=== PATIENT | female | born 1955 | race American Indian/Alaskan Native ===

== ENCOUNTER 2022-01-17 11:31 | Inpatient (IN) | payer MEDICARE, MEDICAID ==
[2022-01-17] MEDS ORDERED: ONDANSETRON 4 MG/2 ML INJ IV SCH (12:47)
[2022-01-17] MEDS ORDERED: MORPHINE 2 MG/1 ML INJ IV SCH (12:47)
--- NOTE | 2022-01-17 12:51 | Emergency Department Report ---
ED Chest Pain HPI - General Chief Complaint: Chest Pain Stated Complaint: CHEST PAIN Time Seen by Provider: 01/17/22 12:36 Source: patient Mode of arrival: Ambulatory Limitations: No Limitations - History of Present Illness Initial Comments: This is a 66-year-old female with history of arthritis, hypertension, asthma, and hyperlipidemia who presents to the emergency department with multiple complaints which started last week. Patient complains of substernal, pressure- like, moderate chest pain, intermittently since last week. The pain returned again, last night, and was associated with weakness, dizziness, coffee-ground emesis, and 4 episodes of syncope. Currently, patient complains of shortness of breath, generalized fatigue, moderate, burning epigastric pain, and palpitations. Patient denies previous similar episodes. Patient does not know if she has GERD, peptic ulcer disease, or any GI malignancy, and has never had a colonoscopy. Patient denies alleviating or aggravating factors. - Related Data Allergies Allergy/AdvReac Type Severity Reaction Status Date / Time aspirin Allergy Unknown Verified 01/17/22 14:45 ibuprofen [From Motrin] Allergy Unknown Verified 01/17/22 14:45 Heart Score - HEART Score History: Moderately suspicious EKG: Non-specific Age: > 65 (This) Risk factors: > 3 risk factors or hx of atherosclerotic disease Troponin: 1-3x normal limit (Thinks) HEART Score: 7 - EKG Read Time Time EKG Completed: 12:20 EKG Read Time: 12:25 ED Review of Systems ROS: Stated complaint: CHEST PAIN Other details as noted in HPI Comment: All other systems reviewed and negative Constitutional: malaise, weakness. denies: chills, fever Eyes: denies: eye pain, eye discharge, vision change ENT: denies: ear pain, throat pain Respiratory: shortness of breath, SOB at rest. denies: cough, orthopnea, wheezing Cardiovascular: chest pain, palpitations, dyspnea on exertion Endocrine: no symptoms reported Gastrointestinal: abdominal pain, nausea, vomiting, hematemesis. denies: diarrhea Genitourinary: denies: urgency, dysuria, discharge Musculoskeletal: other (Chronic pain). denies: back pain, joint swelling, arthralgia Skin: denies: rash, lesions Neurological: other (Syncope x3). denies: headache, weakness, paresthesias Psychiatric: denies: anxiety, depression Hematological/Lymphatic: denies: easy bleeding, easy bruising ED Physical Exam - General Limitations: No Limitations General appearance: alert, in no apparent distress, other (Appears weak) - Head Head exam: Present: atraumatic, normocephalic - Eye Eye exam: Present: normal appearance, PERRL, EOMI, other (Pale conjunctiva) - ENT ENT exam: Present: normal orophraynx, mucous membranes moist - Neck Neck exam: Present: normal inspection - Respiratory Respiratory exam: Present: normal lung sounds bilaterally. Absent: respiratory distress, wheezes, rales - Cardiovascular Cardiovascular Exam: Present: normal rhythm, tachycardia. Absent: systolic murmur, diastolic murmur, rubs, gallop - GI/Abdominal GI/Abdominal exam: Present: soft, tenderness (Epigastric), normal bowel sounds. Absent: distended, guarding, rebound - Extremities Exam Extremities exam: Present: normal inspection - Back Exam Back exam: Present: normal inspection - Neurological Exam Neurological exam: Present: alert, oriented X3 - Psychiatric Psychiatric exam: Present: normal affect, normal mood - Skin Skin exam: Present: warm, dry, intact, pallor. Absent: rash ED Course Vital Signs 01/17/22 11:45 Temperature 97.8 F Pulse Rate 139 H Respiratory 18 Rate Blood Pressure 132/94 [Left] O2 Sat by Pulse 99 Oximetry ED Medical Decision Making - Lab Data Result diagrams: 01/17/22 14:08 01/17/22 14:08 - EKG Data When compared to previous EKG there are: previous EKG unavailable Interpretation: other (Sinus tachycardia at [address]-T wave changes) - Radiology Data IMPRESSION: 1. Negative for PTE. Minimal atelectasis with otherwise clear lungs. 2. No acute abnormality in the abdomen or pelvis. Please note that the lower pelvis was excluded from view on this exam. Signer Name: Mehdi Lewis MD - Medical Decision Making 66-year-old female presents with multiple complaints including chest pain, coffee-ground emesis, and multiple episodes of syncope which started at 4:30 AM. Patient's vital signs are concerning for tachycardia (139). Physical exam is concerning for generalized weak appearing patient, who is tachycardic, pale, and with epigastric tenderness. EKG is sinus tach at 133 with diffuse T depressions. Blood work is concerning for elevated lactic acid is (2.4), anemia (9.7), and elevated D-dimer. Troponin was within normal limits. CTA chest did not show pulmonary embolism. CT abdomen pelvis did not show any acute abnormal ities, either. Patient reports significant improvement of her symptoms after morphine, IV fluids, and Protonix. Patient verbalized understanding of her diagnoses, and is amenable to admission. - Differential Diagnosis GI bleed, ACS, pulmonary embolism Critical care attestation.: If time is entered above; I have spent that time in minutes in the direct care of this critically ill patient, excluding procedure time. ED Disposition Clinical Impression: Epigastric abdominal pain, Coffee ground emesis Chest pain Qualifiers: Chest pain type: other chest pain Qualified Code(s): R07.89 - Other chest pain Disposition: 09 ADMITTED INPATIENT Is pt being admited?: Yes Does the pt Need Aspirin: No Condition: Serious Instructions: Nonspecific Chest Pain, Adult Referrals: PRIMARY CARE, [Primary Care Provider] - 3-5 Days
--- NOTE | 2022-01-17 13:37 | XRay Report ---
CHEST 1 VIEW 01/17/2022 1:23 PM INDICATION / CLINICAL INFORMATION: GI Bleed. COMPARISON: None available. FINDINGS: SUPPORT DEVICES: None. HEART / MEDIASTINUM: No significant abnormality. LUNGS / PLEURA: No significant pulmonary or pleural abnormality. No pneumothorax. ADDITIONAL FINDINGS: No significant additional findings. IMPRESSION: 1. No acute findings. Signer Name: Yo Vernon MD Signed: 01/17/2022 1:33 PM Workstation Name: [id number]
[2022-01-17 14:35] LABS: Basophils # (Auto) 0.1 K/mm3 (0.0-0.1); Basophils % (Auto) 0.6 % (0.0-1.8); Eosinophils % (Auto) 0.3 % (0.0-4.3); Hematocrit 28.6 % (30.3-42.9); Hemoglobin 9.7 gm/dl (10.1-14.3); Lymphocytes # (Auto) 1.1 K/mm3 (1.2-5.4); Mean Corpuscular HGB Conc 34 % (30-34); Mean Corpuscular Volume 92 fl (79-97); Monocytes # (Auto) 0.3 K/mm3 (0.0-0.8); Monocytes % (Auto) 3.9 % (0.0-7.3); Platelet Count 256 K/mm3 (140-440); Red Cell Distribution Width 14.6 % (13.2-15.2)
[2022-01-17 14:58] LABS: Alanine Aminotransferase 11 units/L (7-56); Albumin 4.7 g/dL (3.9-5); Blood Urea Nitrogen 37 mg/dL (7-17); Calcium 10.3 mg/dL (8.4-10.2); Hemolysis Index 30
[2022-01-17 15:25] LABS: BUN/Creatinine Ratio 53
[2022-01-17] MEDS ORDERED: PANTOPRAZOLE 40 MG INJ IV ONE (16:00)
[2022-01-17] MEDS ORDERED: SODIUM CHLORIDE 0.9% 1000 ML 1,000 ML IV ONE (16:00)
[2022-01-17] MEDS ORDERED: PANTOPRAZOLE 80 MG in SODIUM CHLORIDE 0.9% 100 ML IV ONE (16:00)
[2022-01-17 17:52] LABS: INR 0.97 (0.87-1.13)
[2022-01-17 17:53] LABS: Partial Thromboplastin Time 24.8 Sec. (24.2-36.6)
--- NOTE | 2022-01-17 18:08 | Cat Scan Report ---
CTA chest with contrast CT abdomen and pelvis with contrast INDICATION : GI Bleed Chest pain rule out PE 100ml of [id number]. Concern for GI bleed TECHNIQUE: Axial imaging performed through the chest, with contrast bolus timing set to maximize opa cification of the pulmonary arteries. 3-plane MIP reformatted images were obtained. Axial imaging als o performed through the abdomen and pelvis with IV contrast. All CT scans at this location are perfor med using CT dose reduction for ALARA by means of automated exposure control. 100 mL of intravenous contrast administered. COMPARISON: None FINDINGS: CTA chest: Contrast bolus timing is adequate with no filling defect present to suggest PTE. Normal heart size. N o pathologic mediastinal adenopathy. No coronary artery calcification. Minimal streaky left greater t chahal right basilar atelectasis. No consolidation or effusion. Degenerative changes in the spine with n othing acute. CT abdomen/pelvis: The liver, gallbladder, spleen, pancreas, adrenals, kidneys, and proximal GI tract appear unremarkabl e. The lower pelvis was excluded. The visualized mid bladder appears unremarkable. Uterus appears to be surgically absent. No gross pelvic free fluid. No acute colonic abnormality identified. There are deg enerative changes in the spine and pelvis with nothing acute. IMPRESSION: 1. Negative for PTE. Minimal atelectasis with otherwise clear lungs. 2. No acute abnormality in the abdomen or pelvis. Please note that the lower pelvis was excluded from view on this exam. Signer Name: Mehdi Lewis MD Signed: 01/17/2022 6:04 PM Workstation Name: [id number]
--- NOTE | 2022-01-17 18:08 | Cat Scan Report ---
CTA chest with contrast CT abdomen and pelvis with contrast INDICATION : Chest pain rule out PE 100ml of [id number]. Concern for GI bleed TECHNIQUE: Axial imaging performed through the chest, with contrast bolus timing set to maximize opa cification of the pulmonary arteries. 3-plane MIP reformatted images were obtained. Axial imaging als o performed through the abdomen and pelvis with IV contrast. All CT scans at this location are perfor med using CT dose reduction for ALARA by means of automated exposure control. 100 mL of intravenous contrast administered. COMPARISON: None FINDINGS: CTA chest: Contrast bolus timing is adequate with no filling defect present to suggest PTE. Normal heart size. N o pathologic mediastinal adenopathy. No coronary artery calcification. Minimal streaky left greater t chahal right basilar atelectasis. No consolidation or effusion. Degenerative changes in the spine with n othing acute. CT abdomen/pelvis: The liver, gallbladder, spleen, pancreas, adrenals, kidneys, and proximal GI tract appear unremarkabl e. The lower pelvis was excluded. The visualized mid bladder appears unremarkable. Uterus appears to be surgically absent. No gross pelvic free fluid. No acute colonic abnormality identified. There are deg enerative changes in the spine and pelvis with nothing acute. IMPRESSION: 1. Negative for PTE. Minimal atelectasis with otherwise clear lungs. 2. No acute abnormality in the abdomen or pelvis. Please note that the lower pelvis was excluded from view on this exam. Signer Name: Mehdi Lewis MD Signed: 01/17/2022 6:04 PM Workstation Name: [id number]
[2022-01-17] MEDS ORDERED: METOCLOPRAMIDE 10 MG/2 ML INJ IV PRN (22:00)
[2022-01-17] MEDS ORDERED: MORPHINE 2 MG/1 ML INJ IV PRN (22:00)
[2022-01-17] MEDS ORDERED: ACETAMINOPHEN 325 MG TAB PO PRN (22:00)
[2022-01-17] MEDS ORDERED: ONDANSETRON 4 MG/2 ML INJ IV PRN (22:00)
[2022-01-17] MEDS: HEPARIN 5,000 UNIT/1 ML VIAL SUB-Q SCH (22:36)
[2022-01-18 05:04] LABS: Basophils % (Auto) 0.3 % (0.0-1.8); Hematocrit 25.3 % (30.3-42.9); Hemoglobin 8.4 gm/dl (10.1-14.3); Lymphocytes # (Auto) 2.4 K/mm3 (1.2-5.4); Lymphocytes % (Auto) 31.5 % (13.4-35.0); Mean Corpuscular HGB Conc 33 % (30-34); Mean Corpuscular Volume 93 fl (79-97); Monocytes # (Auto) 0.5 K/mm3 (0.0-0.8); Monocytes % (Auto) 7.1 % (0.0-7.3); Platelet Count 231 K/mm3 (140-440); Red Blood Count 2.72 M/mm3 (3.65-5.03); Red Cell Distribution Width 14.7 % (13.2-15.2)
[2022-01-18 05:08] LABS: Alanine Aminotransferase 10 units/L (7-56); Albumin 4.4 g/dL (3.9-5); BUN/Creatinine Ratio 36; Blood Urea Nitrogen 29 mg/dL (7-17); Calcium 9.4 mg/dL (8.4-10.2); Hemolysis Index 33
--- NOTE | 2022-01-18 07:56 | History and Physical Report ---
History of Present Illness Date of examination: 01/17/22 Date of admission: 01/17/22 Chief complaint: Chest pain since a.m. History of present illness: 66-year-old female with history of hypertension asthma arthritis and hyperlipidemia presents with chest pain which is intermittent for the last 1 week more so for since a.m. Patient is a very poor historian. Patient also apparently passed out. Patient apparently in the coffee-ground emesis which is not corroborated. No shortness of breath. No fatigue. No epigastric pain. Heart Score - HEART Score History: Moderately suspicious EKG: Non-specific Age: > 65 (This) Risk factors: > 3 risk factors or hx of atherosclerotic disease Troponin: 1-3x normal limit (Thinks) HEART Score: 7 - EKG Read Time Time EKG Completed: 12:20 EKG Read Time: 12:25 Review of Systems ROS: Stated complaint: CHEST PAIN Other details as noted in HPI Comment: All other systems reviewed and negative Constitutional: malaise, weakness. denies: chills, fever Eyes: denies: eye pain, eye discharge, vision change ENT: denies: ear pain, throat pain Respiratory: shortness of breath, SOB at rest. denies: cough, orthopnea, wheezing Cardiovascular: chest pain, palpitations, dyspnea on exertion Endocrine: no symptoms reported Gastrointestinal: abdominal pain, nausea, vomiting, hematemesis. denies: diarrhea Genitourinary: denies: urgency, dysuria, discharge Musculoskeletal: other (Chronic pain). denies: back pain, joint swelling, arthralgia Skin: denies: rash, lesions Neurological: other (Syncope x3). denies: headache, weakness, paresthesias Psychiatric: denies: anxiety, depression Hematological/Lymphatic: denies: easy bleeding, easy bruising Past History Past Medical History: diabetes, hypertension Past Surgical History: , hysterectomy, Other Social history: lives with family, full code Family history: hypertension Medications and Allergies Allergies Allergy/AdvReac Type Severity Reaction Status Date / Time aspirin Allergy Unknown Verified 01/17/22 14:45 ibuprofen [From Motrin] Allergy Unknown Verified 01/17/22 14:45 Active Meds: Active Medications Acetaminophen (Acetaminophen 325 Mg Tab) 650 mg PO Q4H PRN PRN Reason: Pain MILD(1-3)/Fever >100.5/BACA Famotidine (Famotidine 20 Mg Tab) 20 mg PO BID [facility] Heparin Sodium (Porcine) (Heparin 5,000 Unit/1 Ml Vial) 5,000 unit SUB-Q Q12HR [facility] Last Admin: 01/17/22 22:36 Dose: 5,000 unit Sodium Chloride (Nacl 0.9% 1000 Ml) 1,000 mls @ 75 mls/hr IV DIRECT RG Metoclopramide HCl (Metoclopramide 10 Mg/2 Ml Inj) 10 mg IV Q6H PRN PRN Reason: Nausea And Vomiting Morphine Sulfate (Morphine 2 Mg/1 Ml Inj) 2 mg IV Q4H PRN PRN Reason: Pain, Moderate (4-6) Ondansetron HCl (Ondansetron 4 Mg/2 Ml Inj) 4 mg IV Q8H PRN PRN Reason: Nausea And Vomiting Oxycodone/Acetaminophen (Oxycodone /Acetaminophen 5-325mg Tab) 1 tab PO Q6H PRN PRN Reason: Pain, Moderate (4-6) Sodium Chloride (Sodium Chloride 0.9% 10 Ml Flush Syringe) 10 ml IV BID [facility] Last Admin: 01/17/22 22:22 Dose: Not Given Sodium Chloride (Sodium Chloride 0.9% 10 Ml Flush Syringe) 10 ml IV PRN PRN PRN Reason: LINE FLUSH Exam - Constitutional Vitals: Temp Pulse Resp BP Pulse Ox 98.1 F 117 H 15 124/78 96 01/18/22 03:59 01/18/22 03:59 01/18/22 03:59 01/18/22 03:59 01/18/22 03:59 General appearance: Present: no acute distress, well-nourished - EENT Eyes: Present: PERRL ENT: hearing intact, clear oral mucosa - Neck Neck: Present: supple, normal ROM - Respiratory Respiratory effort: normal Respiratory: bilateral: CTA - Cardiovascular Heart rate: 78 Rhythm: regular Heart Sounds: Present: S1 & S2. Absent: rub, click - Extremities Extremities: pulses symmetrical, No edema Peripheral Pulses: within normal limits - Abdominal General gastrointestinal: Present: soft, non-tender, non-distended, normal bowel sounds Female genitourinary: Present: normal - Integumentary Integumentary: Present: clear, warm, dry - Musculoskeletal Musculoskeletal: gait normal, strength equal bilaterally - Psychiatric Psychiatric: appropriate mood/affect, intact judgment & insight - Neurologic Neurologic: CNII-XII intact, moves all extremities HEART Score - HEART Score EKG: Non-specific Age: > 65 (This) Risk factors: > 3 risk factors or hx of atherosclerotic disease Troponin: Troponin T < 0.010 ng/mL (0.00-0.029) 01/18/22 04:17 Troponin: 1-3x normal limit (Thinks) Results - Labs CBC & Chem 7: 01/18/22 04:17 01/18/22 04:17 Labs: Laboratory Last Values WBC 7.6 K/mm3 (4.5-11.0) 01/18/22 04:17 RBC 2.72 M/mm3 (3.65-5.03) L 01/18/22 04:17 Hgb 8.4 gm/dl (10.1-14.3) L 01/18/22 04:17 Hct 25.3 % (30.3-42.9) L 01/18/22 04:17 MCV 93 fl (79-97) 01/18/22 04:17 MCH 31 pg (28-32) 01/18/22 04:17 MCHC 33 % (30-34) 01/18/22 04:17 RDW 14.7 % (13.2-15.2) 01/18/22 04:17 Plt Count 231 K/mm3 (140-440) 01/18/22 04:17 Lymph % (Auto) 31.5 % (13.4-35.0) 01/18/22 04:17 Mccracken % (Auto) 7.1 % (0.0-7.3) 01/18/22 04:17 Eos % (Auto) 0.0 % (0.0-4.3) 01/18/22 04:17 Baso % (Auto) 0.3 % (0.0-1.8) 01/18/22 04:17 Lymph # (Auto) 2.4 K/mm3 (1.2-5.4) 01/18/22 04:17 Mccracken # (Auto) 0.5 K/mm3 (0.0-0.8) 01/18/22 04:17 Eos # (Auto) 0.0 K/mm3 (0.0-0.4) 01/18/22 04:17 Baso # (Auto) 0.0 K/mm3 (0.0-0.1) 01/18/22 04:17 Seg Neutrophils % 61.1 % (40.0-70.0) 01/18/22 04:17 Seg Neutrophils # 4.6 K/mm3 (1.8-7.7) 01/18/22 04:17 PT 14.2 Sec. (12.2-14.9) 01/17/22 16:47 INR 0.97 (0.87-1.13) 01/17/22 16:47 APTT 24.8 Sec. (24.2-36.6) 01/17/22 16:47 D-Dimer 449.48 ng/mlDDU (0-234) H 01/17/22 16:47 Sodium 141 mmol/L (137-145) 01/18/22 04:17 Potassium 4.2 mmol/L (3.6-5.0) 01/18/22 04:17 Chloride 105.3 mmol/L (98-107) 01/18/22 04:17 Carbon Dioxide 23 mmol/L (22-30) 01/18/22 04:17 Anion Gap 17 mmol/L 01/18/22 04:17 BUN 29 mg/dL (7-17) H 01/18/22 04:17 Creatinine 0.8 mg/dL (0.6-1.2) 01/18/22 04:17 Estimated GFR > 60 ml/min 01/18/22 04:17 BUN/Creatinine Ratio 36 % 01/18/22 04:17 Glucose 113 mg/dL (65-100) H 01/18/22 04:17 Lactic Acid 1.80 mmol/L (0.7-2.0) 01/17/22 19:37 Calcium 9.4 mg/dL (8.4-10.2) 01/18/22 04:17 Total Bilirubin 0.30 mg/dL (0.1-1.2) 01/18/22 04:17 AST 14 units/L (5-40) 01/18/22 04:17 ALT 10 units/L (7-56) 01/18/22 04:17 Alkaline Phosphatase 41 units/L (35-129) 01/18/22 04:17 Troponin T < 0.010 ng/mL (0.00-0.029) 01/18/22 04:17 Total Protein 6.1 g/dL (6.3-8.2) L 01/18/22 04:17 Albumin 4.4 g/dL (3.9-5) 01/18/22 04:17 Albumin/Globulin Ratio 2.6 % 01/18/22 04:17 Lipase 16 units/L (13-60) 01/17/22 14:08 Blood Type A POSITIVE 01/17/22 14:08 Antibody Screen Negative 01/17/22 14:08 Short CBC 01/17/22 01/18/22 Range/Units 14:08 04:17 WBC 8.5 7.6 (4.5-11.0) K/mm3 Hgb 9.7 L 8.4 L (10.1-14.3) gm/dl Hct 28.6 L 25.3 L (30.3-42.9) % Plt Count 256 231 (140-440) K/mm3 BMP 01/17/22 01/18/22 14:08 04:17 Sodium 142 141 Potassium 4.1 4.2 Chloride 105.9 105.3 Carbon Dioxide 21 L 23 BUN 37 H 29 H Creatinine 0.7 0.8 Glucose 123 H 113 H Calcium 10.3 H 9.4 Cardiac Enzymes 01/17/22 01/17/22 01/18/22 Range/Units 14:08 22:33 04:17 Troponin T < 0.010 < 0.010 < 0.010 (0.00-0.029) ng/mL Liver Function 01/17/22 01/18/22 Range/Units 14:08 04:17 Total Bilirubin 0.20 0.30 (0.1-1.2) mg/dL AST 12 14 (5-40) units/L ALT 11 10 (7-56) units/L Alkaline Phosphatase 48 41 (35-129) units/L Albumin 4.7 4.4 (3.9-5) g/dL Assessment and Plan Advance Directives: Yes - Patient Problems (1) Acute coronary syndrome Current Visit: Yes Status: Acute Plan to address problem: Serial troponins Is negative. Patient to be discharged and get the stress test as outpatient (2) Syncope and collapse Current Visit: Yes Status: Acute Plan to address problem: Syncope work-up (3) Hypertension Current Visit: Yes Status: Chronic Qualifiers: Hypertension type: primary hypertension Qualified Code(s): I10 - Essential (primary) hypertension Plan to address problem: Patient apparently not taking any antihypertensives Will trend the blood pressure readings and start on antihypertensives if necessary (4) Upper GI bleed Current Visit: Yes Status: Acute Plan to address problem: Unlikely Patient is a very poor historian IV Protonix Serial hemoglobin and hematocrit GI consult if necessary (5) Advance care planning Current Visit: Yes Status: Acute Plan to address problem: Disease education conducted care plan discussed diagnosis and prognosis discussed. Patient is full code. Patient acknowledged understanding of the care plan. +30 minutes. (6) DVT prophylaxis Current Visit: Yes Status: Acute Plan to address problem: On SCDs and GI prophylaxis
[2022-01-18] MEDS ORDERED: FAMOTIDINE 20 MG TAB PO SCH (10:00)
[2022-01-18] MEDS: PANTOPRAZOLE 40 MG INJ IV SCH ×2 (10:46→21:23)
[2022-01-18] MEDS: oxyCODONE /ACETAMINOPHEN 5-325MG TAB PO PRN ×2 (10:46→21:23)
[2022-01-18] MEDS: HEPARIN 5,000 UNIT/1 ML VIAL SUB-Q SCH ×2 (10:46→21:24)
[2022-01-18] MEDS: SODIUM CHLORIDE 0.9% 1000 ML 1,000 ML IV SCH ×2 (10:47→22:22)
[2022-01-18 11:37] LABS: Hematocrit 24.8 % (30.3-42.9); Hemoglobin 8.2 gm/dl (10.1-14.3)
--- NOTE | 2022-01-18 11:45 | Electrocardiograph Report ---
[facility] Test Date: 2022-01-17 Test Time: 12:20:53 Pat Name: MAI DOHERTY Department: Room: A481 Gender: F Exterminator: VEE : 1955 Requested By: CHARANJIT العراقي Order Number: [id number] Reading MD: Tian Ortiz Measurements Intervals [place] Rate: 133 P: 68 NC: 132 QRS: 51 QRSD: 77 T: 223 QT: 279 QTc: 415 Interpretive Statements Sinus tachycardia Repol abnrm suggests ischemia, diffuse leads No previous ECG available for comparison Electronically Signed On 01-18-2022 11:45:21 EDT by Tian Ortiz
--- NOTE | 2022-01-18 15:12 | XRay Report ---
RIGHT SHOULDER 1 VIEW INDICATION / CLINICAL INFORMATION: Rt Shoulder pain COMPARISON: None available. FINDINGS: BONES and JOINT(S): No acute fracture or subluxation. Mild degenerative arthrosis of the AC and gleno humeral joints is noted. SOFT TISSUES: No significant abnormality. ADDITIONAL FINDINGS: None. IMPRESSION: Limited single view of the right shoulder without acute findings. Degenerative changes as above. Signer Name: Jesu Gilmore MD Signed: 01/18/2022 3:08 PM Workstation Name: [id number]
[2022-01-18] MEDS ORDERED: ALPRAZolam 1 MG TAB PO PRN (20:44)
[2022-01-19 06:24] LABS: Hematocrit 21.2 % (30.3-42.9); Hemoglobin 7.2 gm/dl (10.1-14.3)
--- NOTE | 2022-01-19 07:29 | Progress Note ---
Assessment and Plan - Patient Problems (1) Acute coronary syndrome Current Visit: Yes Status: Acute Plan to address problem: Serial troponins Is negative. Patient to be discharged and get the stress test as outpatient (2) Syncope and collapse Current Visit: Yes Status: Acute Plan to address problem: Syncope work-up (3) Hypertension Current Visit: Yes Status: Chronic Qualifiers: Hypertension type: primary hypertension Qualified Code(s): I10 - Essential (primary) hypertension Plan to address problem: Patient apparently not taking any antihypertensives Will trend the blood pressure readings and start on antihypertensives if necessary (4) Upper GI bleed Current Visit: Yes Status: Acute Plan to address problem: Unlikely Patient is a very poor historian IV Protonix Serial hemoglobin and hematocrit GI consult if necessary (5) Advance care planning Current Visit: Yes Status: Acute Plan to address problem: Disease education conducted care plan discussed diagnosis and prognosis discussed. Patient is full code. Patient acknowledged understanding of the care plan. +30 minutes. (6) DVT prophylaxis Current Visit: Yes Status: Acute Plan to address problem: On SCDs and GI prophylaxis Subjective Date of service: 01/18/22 Objective - Constitutional Vitals: Vital Signs - 12hr 01/18/22 01/18/22 01/18/22 19:51 22:00 23:00 Temperature 98.3 F Pulse Rate 104 H 106 H Respiratory 18 Rate Blood Pressure 126/62 O2 Sat by Pulse 99 96 Oximetry 01/19/22 01/19/22 00:03 05:06 Temperature 98.4 F 97.9 F Pulse Rate 98 H 94 H Respiratory 18 20 Rate Blood Pressure 112/63 105/56 O2 Sat by Pulse 98 96 Oximetry General appearance: Present: no acute distress, well-nourished - EENT Eyes: PERRL, EOM intact ENT: hearing intact, clear oral mucosa Ears: bilateral: normal - Neck Neck: supple, normal ROM - Respiratory Respiratory effort: normal Respiratory: bilateral: CTA - Breasts Breasts: normal - Cardiovascular Rhythm: regular Heart Sounds: Present: S1 & S2. Absent: gallop, rub Extremities: pulses intact, No edema, normal color, Full ROM - Gastrointestinal General gastrointestinal: Present: soft, non-tender, non-distended, normal bowel sounds - Genitourinary Female genitourinary: normal - Integumentary Integumentary: clear, warm, dry - Musculoskeletal Musculoskeletal: 1, strength equal bilaterally - Neurologic Neurologic: moves all extremities - Psychiatric Psychiatric: memory intact, appropriate mood/affect, intact judgment & insight - Labs CBC & Chem 7: 01/19/22 05:47 01/18/22 04:17 Labs: Abnormal lab results 01/18/22 01/19/22 Range/Units 11:06 05:47 Hgb 8.2 L 7.2 L (10.1-14.3) gm/dl Hct 24.8 L 21.2 L (30.3-42.9) % HEART Score - HEART Score EKG: Non-specific Age: > 65 (This) Risk factors: > 3 risk factors or hx of atherosclerotic disease Troponin: Troponin T < 0.010 ng/mL (0.00-0.029) 01/18/22 04:17 Troponin: 1-3x normal limit (Thinks)
[2022-01-19] MEDS: HEPARIN 5,000 UNIT/1 ML VIAL SUB-Q SCH (09:10)
[2022-01-19] MEDS: PANTOPRAZOLE 40 MG INJ IV SCH (09:10)
[2022-01-19] MEDS: SODIUM CHLORIDE 0.9% 1000 ML 1,000 ML IV SCH (11:19)
[2022-01-19 12:05] VITALS: BP 96/55
--- NOTE | 2022-01-19 14:57 | Discharge Summary ---
Providers - Providers Date of Admission: 01/17/22 22:00 Date of discharge: 01/19/22 Attending physician: GERRI DICKENS Primary care physician: DANA THORNTON MD Hospitalization Condition: Serious Disposition: 01 HOME / SELF CARE / HOMELESS - Discharge Diagnoses (1) Acute coronary syndrome Status: Acute (2) Syncope and collapse Status: Acute (3) Hypertension Status: Chronic Qualifiers: Hypertension type: primary hypertension Qualified Code(s): I10 - Essential (primary) hypertension (4) Upper GI bleed Status: Acute (5) Advance care planning Status: Acute (6) DVT prophylaxis Status: Acute Exam - Constitutional Vitals: Temp Pulse Resp BP Pulse Ox 98.2 F 105 H 18 96/55 97 01/19/22 08:41 01/19/22 08:41 01/19/22 08:41 01/19/22 08:41 01/19/22 10:00 Plan Follow up with: DANA THORNTON MD [Primary Care Provider] - 3-5 Days DIANN LÓPEZ MD [Staff Physician] - 7 Days MIKAYLA HARRISON DO [Staff Physician] - 7 Days Prescriptions: Pantoprazole Sodium [Protonix] 40 mg PO QDAY 30 Days #30 Tramadol HCl/Acetaminophen [Ultracet Tablet] 1 each PO BID 30 Days #60 ALPRAZolam [Xanax TAB] 1 mg PO Q8H PRN #30 PRN Reason: Anxiety tiZANidine [Zanaflex 4mg TAB] 4 mg PO BID 15 Days #30
== END 2022-01-19 16:20 | disposition home or self-care (01) | DRG 74 ==
LOC: ED 11:31 → 4A 22:00
PROVIDERS: ADMIT Internal Medicine; ATTEND Internal Medicine
DX: G90.8 Other disorders of autonomic nervous system (principal); I24.9 Acute ischemic heart disease, unspecified; K92.2 Gastrointestinal hemorrhage, unspecified; M19.90 Unspecified osteoarthritis, unspecified site; I10 Essential (primary) hypertension; J45.909 Unspecified asthma, uncomplicated; E78.5 Hyperlipidemia, unspecified; Z90.710 Acquired absence of both cervix and uterus; Z82.49 Family history of ischemic heart disease and other diseases of the circulatory system; Z88.6 Allergy status to analgesic agent; Z91.048 Other nonmedicinal substance allergy status
CPT/HCPCS: 36415; 71045; 71275; 74177; 80053; 82140; 83690; 84484; 85014; 85018; 85025; 85379; 85610; 85730; 86850; 86900; 86901; 93005; 96374; 96375; 99285; G0378; C9113; J1644; J2270; J2405; J7030; Q9967